=== PATIENT | female | born 1995 | race Caucasian/White ===

== ENCOUNTER 2021-05-18 20:22 | Emergency (ER) | payer SELFPAY ==
[2021-05-18 20:35] VITALS: BP 130/84; PULSE 104; TEMP 98.8; BMI 29.2
[2021-05-18] MEDS ORDERED: KETOROLAC TROMETHAMINE 30 MG/1 ML VIAL IM ONE (21:08)
[2021-05-18] MEDS ORDERED: DEXAMETHASONE SOD PHOSPHATE 10 MG/1 ML VIAL ONE (21:08)
[2021-05-18] MEDS ORDERED: AMOX TR/POT CLAV 875MG/125MG TABLETS (FP) PO ONE (21:08)
[2021-05-18] MEDS ORDERED: KETOROLAC TROMETHAMINE 30 MG/1 ML VIAL ONE (21:09)
[2021-05-18] MEDS ORDERED: DEXAMETHASONE LIQUID 0.5 MG/5 ML PO ONE (21:09)
[2021-05-18] MEDS ORDERED: AMOX TR/POT CLAV 875MG/125MG TABLETS (FP) ONE (21:09)
== END 2021-05-18 22:10 | disposition home or self-care (01) ==
LOC: JER 20:22
PROC: 3E023GC Introduction of Other Therapeutic Substance into Muscle, Percutaneous Approach (ICD-10-PCS; principal; 2021-05-18)
DX: K05.6 Periodontal disease, unspecified (principal)
CPT/HCPCS: 99284-25